=== PATIENT | female | born 1980 | race Caucasian/White ===

== ENCOUNTER 2016-06-08 17:01 | Emergency (ER) | payer OTHER ==
[2016-06-08 18:14] VITALS: TEMP 98.7
--- NOTE | 2016-06-08 18:36 | ED ---
General Adult HPI - General Chief complaint: Extremity Injury, Lower Stated complaint: LEFT FOOT AND ANKLE PAIN Time Seen by Provider: 06/08/16 18:24 Source: patient, RN notes reviewed Mode of arrival: wheelchair Limitations: no limitations - History of Present Illness Initial comments: Patient is a 36-year-old female with chief complaint of left lower ankle and foot swelling. Patient reports this is occurred for the past month. She states that she thinks it occurred when she was lifting a pallet at work. She states she's had x-rays were negative for any fracture. She reports that she's been walking on her feet since then. She states that she doesn't have any specific pain with walking however the swelling continues to persist. Patient reports that she is on Hydrocort Thiacide but does not take this medication. She reports that occasionally the area will be read in very itchy. Patient denies any fever or chills. She denies any other associated symptoms. She is a nonsmoker and does not take control pills. - Related Data Home Medications Medication Instructions Recorded Confirmed Atenolol [Tenormin] 50 mg PO HS 06/08/16 06/08/16 Cyclobenzaprine [Flexeril] 10 mg PO BID PRN 06/08/16 06/08/16 Hydrochlorothiazide [Hydrodiuril] 25 mg PO DAILY 06/08/16 06/08/16 Losartan [Cozaar] 50 mg PO DAILY 06/08/16 06/08/16 Phentermine HCl [Adipex-P] 37.5 mg PO QAM 06/08/16 06/08/16 Topiramate [Topamax] 50 mg PO HS 06/08/16 06/08/16 Allergies Allergy/AdvReac Type Severity Reaction Status Date / Time No Known Allergies Allergy Verified 06/08/16 18:23 Review of Systems ROS Statement: Those systems with pertinent positive or pertinent negative responses have been documented in the HPI. ROS Other: All systems not noted in ROS Statement are negative. Past Medical History Past Medical History: Hypertension Additional Past Medical History / Comment(s): Migraines History of Any Multi-Drug Resistant Organisms: None Reported Past Surgical History: Section Past Psychological History: No Psychological Hx Reported Smoking Status: Never smoker Past Alcohol Use History: None Reported Past Drug Use History: None Reported General Exam - General Exam Comments Initial Comments: Pleasant 36-year-old female. No distress. Limitations: no limitations General appearance: alert, in no apparent distress Head exam: Present: atraumatic, normocephalic, normal inspection Eye exam: Present: normal appearance, PERRL, EOMI. Absent: scleral icterus, conjunctival injection, periorbital swelling ENT exam: Present: normal exam, mucous membranes moist Neck exam: Present: normal inspection, full ROM. Absent: tenderness, meningismus, lymphadenopathy Respiratory exam: Present: normal lung sounds bilaterally. Absent: respiratory distress, wheezes, rales, rhonchi, stridor Cardiovascular Exam: Present: regular rate, normal rhythm, normal heart sounds. Absent: systolic murmur, diastolic murmur, rubs, gallop, clicks GI/Abdominal exam: Present: soft, normal bowel sounds. Absent: distended, tenderness, guarding, rebound, rigid Extremities exam: Present: normal inspection, full ROM, normal capillary refill , other (Left lower extremity swelling.). Absent: tenderness, pedal edema, joint swelling, calf tenderness Back exam: Present: normal inspection Neurological exam: Present: alert, oriented X3, CN II-XII intact Psychiatric exam: Present: normal affect, normal mood Skin exam: Present: warm, dry, intact, normal color. Absent: rash Course Vital Signs 06/08/16 18:12 Temperature 98.7 F Pulse Rate 111 H Respiratory 18 Rate Blood Pressure 148/79 O2 Sat by Pulse 100 Oximetry Medical Decision Making - Medical Decision Making Patient is a 36-year-old female she complaint of left lower extremity swelling for the past month. Patient's had x-rays performed which revealed no fracture. Repeat x-rays today are also normal. DVT was ruled out from Doppler ultrasound. I discussed with the patient that she needs to take her hydrochlorothiazide as this is dependent edema. Discussed that she has to keep her feet elevated. Patient understands she will plan and will comply. Return parameters were discussed. - Radiology Data Radiology results: report reviewed Normal exam. No DVT of the left leg. Calcaneal spurring seen in the foot x- ray no fracture. Disposition Clinical Impression: Lower leg edema Disposition: HOME SELF-CARE Condition: Good Instructions: Leg Edema (ED) Additional Instructions: Patient advised to restart her hydrochlorothiazide. Wear compression stockings whenever work. Keep feet elevated. Return to the emergency department if any alarming signs or symptoms occur. Time of Disposition: 19:49
--- NOTE | 2016-06-08 19:09 | XR ---
EXAMINATION TYPE: XR ankle complete LT DATE OF EXAM: 06/08/2016 6:36 PM COMPARISON: NONE HISTORY: Ankle pain TECHNIQUE: 3 views FINDINGS: There is a plantar calcaneal spur. There are small Achilles calcaneal spur. I see no fractu re nor dislocation. Ankle mortise is anatomic. IMPRESSION: Calcaneal spurring. No fracture.
--- NOTE | 2016-06-08 19:10 | XR ---
EXAMINATION TYPE: XR foot complete LT DATE OF EXAM: 06/08/2016 6:36 PM COMPARISON: NONE HISTORY: Foot pain TECHNIQUE: 3 views FINDINGS: Metatarsals are intact. There are plantar and Achilles calcaneal spurs. I see no fracture n or dislocation. There are no erosions. IMPRESSION: Calcaneal spurring. No fracture.
--- NOTE | 2016-06-08 19:44 | US ---
EXAMINATION TYPE: US venous doppler duplex LE LT DATE OF EXAM: 06/08/2016 6:56 PM COMPARISON: NONE CLINICAL HISTORY: Pain. SIDE PERFORMED: Left TECHNIQUE: The lower extremity deep venous system is examined utilizing real time linear array sonog andreina with graded compression, doppler sonography and color-flow sonography. VESSELS IMAGED: External Iliac Vein (EIV) Common Femoral Vein Deep Femoral Vein Greater Saphenous Vein * Femoral Vein Popliteal Vein Small Saphenous Vein * Proximal Calf Veins (* superficial vessels) Left Leg: Negative for DVT IMPRESSION: Normal exam. No evidence of deep venous thrombosis in the left leg.
[2016-06-08 20:24] VITALS: BP 124/87; PULSE 96; RESP 16
== END 2016-06-08 20:24 | disposition home or self-care (01) ==
LOC: EC 17:01
DX: R60.0 Localized edema (principal); I10 Essential (primary) hypertension; Z79.899 Other long term (current) drug therapy
CPT/HCPCS: 99284